=== PATIENT | male | born 1965 | race Caucasian/White ===

== ENCOUNTER 2018-01-02 07:38 | Day surgery (SDC) | payer BC ==
[2018-01-02] VITALS (8 sets, daily range): BP systolic 114–127; BP diastolic 71–85
[~2018-01-02] VITALS: Ht 172.7 cm; Wt 79.8 kg
[~2018-01-02 07:38] MED LIST: DICLOFENAC SODI75 MG ORAL; LR 1000ml 1,000 ML IVLG SCH
--- NOTE | 2018-01-02 08:51 | Anethesia Preoperative Eval ---
Anesthesia Pre-op PMH/ROS General Date of Evaluation: Jan 02, 2018 Time of Evaluation: 09:15 Anesthesiologist: ASA Score: ASA 2 Mallampati Score Class I : Soft palate, uvula, fauces, pillars visible Class II: Soft palate, uvula, fauces visible Class III: Soft palate, base of uvula visible Class IV: Only hard plate visible Mallampati Classification: Class II Surgeon: mark Diagnosis: screening Surgical Procedure: colonoscopy Anesthesia History: none Allergies: Coded Allergies: No Known Allergies (Unverified , 01/01/18) Past Medical History Cardiovascular: Denies: HTN, CAD, [place], valve dz, arrhythmia, other Pulmonary: Denies: asthma, COPD, SADAF, other Gastrointestinal/Genitourinary: Denies: GERD, CRI, ESRD, other Neurologic/Psychiatric: Denies: dementia, CVA, depression/anxiety, TIA, other Endocrine: Denies: DM, hypothyroidism, steroids, other HEENT: Denies: cataract (L), cataract (R), glaucoma, ATKA (L), ATKA (R), other Hematology/Immune: Denies: anemia, DVT, bleeding disorder, other Musculoskeletal/Integumentary: Denies: OA, RA, DJD, DDD, edema, other PSxH Narrative: hip , wrist Anesthesia Pre-op Phys. Exam Physician Exam Last Vital Signs Date Time Temp Pulse Resp B/P (MAP) Pulse Ox O2 Delivery O2 Flow Rate FiO2 01/02/18 08:07 98.0 62 18 123/80 98 Room Air 98.0 Constitutional: NAD Cardiovascular: RRR Respiratory: CTA Gastrointestinal: S/NT/ND Airway Exam Mallampati Score: Class II MO: full ROM: full Teeth: intact Dentures: no upper, no lower Anesthesia Pre-op A/P Risk Assessment & Plan Assessment: asa 2 Plan: MAC Status Change Before Surgery: No Pre-Antibiotics Drug: none Merary Collins M.D. Jan 02, 2018 08:51
[2018-01-02] MEDS ORDERED: Lidocaine 1% MPF 10mg/ml 5ml ONE (09:00)
[2018-01-02] MEDS ORDERED: Propofol 200mg/20ml IV ONE (09:00)
[2018-01-02] MEDS ORDERED: LR 1000ml ONE (09:00)
[2018-01-02] MEDS ORDERED: Midazolam 2mg/2ml Inj ONE (09:18)
--- NOTE | 2018-01-02 09:41 | Short Stay Surgery H&P ---
History of Present Illness History of Present Illness Chief Complaint see typed H&P HPI Martinez Aragon is a 52 year old male who was admitted on for Colon Screening Patient History Allergies: Coded Allergies: No Known Allergies (Unverified , 01/01/18) Medication History Scheduled Diclofenac Sod* (Voltaren*), 75 MG ORAL DA, (Reported) Physical Exam Vital Signs Last Vital Signs Date Time Temp Pulse Resp B/P (MAP) Pulse Ox O2 Delivery O2 Flow Rate FiO2 01/02/18 08:07 98.0 62 18 123/80 98 Room Air 98.0 Plan Attestation Are the patient's medical conditions optimized for surgery? Elisa Marie MD Jan 02, 2018 09:41
--- NOTE | 2018-01-02 09:42 | Pre-Procedure Note/Attestation ---
Pre-Procedure Note/Attestation Complete Prior to Procedure Planned Procedure: not applicable Procedure Narrative: colon Indications for Procedure Pre-Operative Diagnosis: screening Attestation I attest that I discussed the nature of the procedure; its benefits; risks and complications; and alternatives (and the risks and benefits of such alternatives ), prior to the procedure, with the patient (or the patient's legal advertising sales representative). I attest that, if there was a reasonable possibility of needing a blood transfusion, the patient (or the patient's legal advertising sales representative) was given the [facility] standardized written summary, pursuant to the [place] Blood Safety Act ([place] Health and Safety Code # 1645, as amended). I attest that I re-evaluated the patient just prior to the surgery and that there has been no change in the patient's H&P, except as documented below: Elisa Marie MD Jan 02, 2018 09:42
[2018-01-02] MEDS ORDERED: LR 1000ml 1,000 ML IVLG SCH (09:53)
[2018-01-02] MEDS ORDERED: DiphenhydrAMINE 50mg/ml Inj IVP PRN (10:00)
[2018-01-02] MEDS ORDERED: fentaNYL 100 mcg/2 mL IV PRN (10:00)
--- NOTE | 2018-01-02 10:27 | Immediate Post-Op Evaluation ---
Immediate Post-Op Evalulation Immediate Post-Op Evalulation Procedure: colonoscopy Date of Evaluation: Jan 02, 2018 Time of Evaluation: 10:14 IV Fluids: LR 200ml Blood Products: 0 Estimated Blood Loss: 0 Urinary Output: 0 Blood Pressure Systolic: 118 Blood Pressure Diastolic: 84 Pulse Rate: 73 Respiratory Rate: 16 O2 Sat by Pulse Oximetry: 99 Temperature (Fahrenheit): 97.2 Pain Score (1-10): 0 Nausea: No Vomiting: No Complications none Patient Status: awake, patent, none Hydration Status: adequate Drug: none Merary Collins M.D. Jan 02, 2018 10:27
--- NOTE | 2018-01-02 10:38 | 48 Hour Post Anesthesia Eval ---
Post Anesthesia Evaluation Procedure: colonoscopy Date of Evaluation: Jan 02, 2018 Time of Evaluation: 10:35 Blood Pressure Systolic: 118 0: 78 Pulse Rate: 55 Respiratory Rate: 14 Temperature (Fahrenheit): 97.2 O2 Sat by Pulse Oximetry: 100 Airway: patent Nausea: No Vomiting: No Pain Intensity: 0 Hydration Status: adequate Mental Status/LOC: patient returned to baseline Post-Anesthesia Complications: none Follow-up care needed: ready to discharge Merary Collins M.D. Jan 02, 2018 10:38
--- NOTE | 2018-01-03 02:15 | Procedure Note ---
DATE OF PROCEDURE: 01/02/2018 GASTROENTEROLOGY PROCEDURE PROCEDURE: Colonoscopy. PRE-ENDOSCOPIC DIAGNOSIS: Screening. POST-ENDOSCOPIC DIAGNOSIS: Normal colonoscopy. SURGEON: Elisa Marie M.D. DESCRIPTION OF PROCEDURE: The procedure, its risks, indications, alternatives, and possible complications were explained to the patient and informed consent was obtained. The patient was sedated and the perianal area was examined carefully and there were no external lesions identified. The rectal exam was done and then the colonoscope was introduced in the rectum and advanced to 10 cm into the terminal ileum without difficulty. The colonoscope was then gradually withdrawn. The mucosa examined carefully. Examination of the terminal ileum as well as the colonic mucosa including retroflexed view of the rectum did not reveal any lesions. The colonoscope was removed and the patient was sent to recovery in good condition. COMPLICATIONS: None. RECOMMENDATIONS: 1. High-fiber diet. 2. Follow up with primary physician. 3. Repeat colonoscopy in 5 to 10 years. Thank you for asking me to participate in the care of this patient. Elisa Marie M.D. DR: SHANIQUA JOB#: [id number] CC: Elisa Marie M.D.; Fax#: [phone]
== END 2018-01-02 11:20 | disposition home or self-care (01) ==
LOC: GAS 07:38
DX: Z12.11 Encounter for screening for malignant neoplasm of colon (principal)
CPT/HCPCS: 45378; J2250; J2704; J7120; 94003; 94150